=== PATIENT | male | born 1980 | race Caucasian/White ===

== ENCOUNTER 2023-08-29 10:35 | Emergency (ER) | payer MEDICAID ==
[~2023-08-29] VITALS: Ht 185.4 cm; Wt 72.7 kg
[2023-08-29 10:36] VITALS: TEMP 97.8
[2023-08-29] MEDS ORDERED: BENZ-38 PO (12:14)
[2023-08-29 12:26] VITALS: BP 109/74; PULSE 80; RESP 17; O2SAT 98
== END 2023-08-29 15:22 | disposition home or self-care (01) ==
LOC: ER 10:36
DX: J06.9 Acute upper respiratory infection, unspecified (principal); Z20.822 Contact with and (suspected) exposure to COVID-19
CPT/HCPCS: 36415; 87502; 87503; 87811; 99283